=== PATIENT | female | born 1985 | race Caucasian/White ===

== ENCOUNTER 2018-04-11 20:13 | Emergency (ER) | payer MEDICAID ==
[~2018-04-11] VITALS: Ht 167.6 cm; Wt 70.3 kg
[2018-04-11 20:39] VITALS: BP_SYST 127
--- NOTE | 2018-04-11 23:28 | NUR ---
Pt ambulatory to chair 1 for evaluation
--- NOTE | 2018-04-11 23:58 | NUR ---
Patient left without being seen. No further treatment done. ER MD aware
== END 2018-04-11 23:58 | disposition left against medical advice (07) ==
LOC: SED 20:13
DX: L02.512 Cutaneous abscess of left hand (principal); Z53.21 Procedure and treatment not carried out due to patient leaving prior to being seen by health care provider